=== PATIENT | female | born 1990 | race Caucasian/White ===

== ENCOUNTER → 2018-04-03 14:10 | Outpatient (CLI) | payer OTHER, SELFPAY ==
[2018-04-03 16:13] LABS: Absolute Lymphocyte Count 1.43 X10^3/ul (0.83-4.51); Absolute Neutrophil Count 4.8 X10^3/uL (2.0-7.7); Basophil# 0.06 X10^3/uL; Basophil% 0.8 % (0-1); Eosinophil# 0.29 X10^3/uL; Hematocrit 41.5 % (37-47); Hemoglobin 13.6 g/dl (12.0-15.0); Lymphocyte # 1.43 X10^3/ul (4.0); Lymphocyte % 19.8 % (19-41); Mean Corp Hgb Conc 32.8 g/gl (32-36); Mean Corpuscular Hgb 28.9 pg (27.0-32.0); Mean Corpuscular Volume 88.1 fL (81-99); Mean Platelet Vol. 11.2 fl (6.2-12.0); Monocyte# 0.63 X10^3/uL; Monocyte% 8.7 % (0-10); Neutrophil % 66.6 % (47-70); Platelet Count 265 K/mm3 (150-450); RBC Distribution Width CV 12.3 % (11.6-14.6); RBC Distribution Width SD 39.2 fl (35.1-43.9); Red Blood Count 4.71 M/mm3 (4.2-5.4); White Blood Count 7.2 K/mm3 (4.4-11.0)
[2018-04-03 16:15] LABS: POSITIVE COUNT NO; POSITIVE DIFFERENTIAL NO; POSITIVE MORPHOLOGY NO
[2018-04-03 16:43] LABS: AST(SGOT) 18 U/L (15-37); Alanine Aminotransfer ALT/SGPT 22 U/L (13-56); Albumin, Serum 4.1 g/dL (3.2-5.0); Alkaline Phosphatase 112 U/L (45-117); Anion Gap 7 (5-15); BUN 15 mg/dL (7-18); Bilirubin, Direct 0.15 mg/dL (0.00-0.30); Calcium,Total 9.5 mg/dL (8.5-10.1); Chloride 107 mmol/L (98-107); Creatinine, Serum 0.79 mg/dL (0.55-1.02); EST Glomerular Filtration Rate 93 mL/min (>60); Est Glom Filt Rate - Afr Amer 113 mL/min (>60); Glucose 89 mg/dL (74-106); Potassium 4.3 mmol/L (3.5-5.1); Protein, Total 8.1 g/dL (6.4-8.2); Sodium Level 141 mmol/L (136-145)
--- OUTSIDE RECORDS SUMMARY | 2018-06-06 02:19 | XMS RPT_ITS ---
:1990 Author Organization [place] Care Team Providers Name Role Phone Lashae Mercado Attending Unavailable Lashae Mercado Referring Unavailable Herrera Rose Primary Care Unavailable SRAVANI BOLTON II Attending Unavailable SRAVANI BOLTON II Referring Unavailable Sachin, Charla Attending Unavailable Herrera Rose Primary Care Unavailable Sachin, Charla Admitting Unavailable Sachin, Charla Attending Unavailable Herrera Rose Primary Care Unavailable Sachin, Charla Admitting Unavailable Sachin, Charla Attending Unavailable Herrera Rose Primary Care Unavailable Tom Joyce Attending Unavailable Herrera Rose Primary Care Unavailable Sachin, Charla Admitting Unavailable Sachin, Charla Attending Unavailable Herrera Rose Primary Care Unavailable Sachin, Charla Attending Unavailable Herrera Rose Primary Care Unavailable Sachin, Charla Attending Unavailable Herrera Rose Primary Care Unavailable Sachin, Charla Admitting Unavailable Tom Joyce Attending Unavailable Herrera Rose Primary Care Unavailable Sachin, Charla Attending Unavailable Herrera Rose Primary Care Unavailable Sachin, Charla Attending Unavailable Herrera Rose Primary Care Unavailable Sachin, Charla Admitting Unavailable Sachin, Charla Attending Unavailable Herrera Rose Primary Care Unavailable Sachin, Charla Attending Unavailable Herrera Rose Primary Care Unavailable Herrera Rose Primary Care Unavailable [place], Trisha A Admitting Unavailable Olivia, Trisha A Attending Unavailable Sachin, Charla Attending Unavailable Herrera Rose Primary Care Unavailable Sachin, Charla Attending Unavailable Herrera Rose Primary Care Unavailable Sachin, Charla Admitting Unavailable Sachin, Charla Attending Unavailable Herrera Rose Primary Care Unavailable Sachin, Charla Attending Unavailable Herrera Rose Primary Care Unavailable Sachin, Charla Attending Unavailable Herrera Rose Primary Care Unavailable Sachin, Charla Admitting Unavailable PROBLEMS PROBLEMS DATE TYPE CONDITION / CODE ATTENDING STATUS SOURCE 04/03/2018 Unknown L40.0 - Psoriasis Lashae Mercado Active [facility] vulgaris / Community L40.0(ICD-10) Hospital Repository 02/20/2018 Active Encounter for JESIER II, Active [facility] general adult SRAVANI H [facility] medical Repository examination without abnormal findings / Z00.00(ICD-10) PROCEDURES PROCEDURES No Procedure Records FoundRESULTS RESULTS CBC W/DIFF, AUTOMATED Collected: 04/03/2018 Status: F Source: [place] 2:28 PM [facility] REPOSITORY TYPE CODE TESTS RESULT OUT OF RANGE REFERENCE UNITS LAB L100.1000 4.4-11.0 K/mm3 Normal WBC 7.2 LAB L100.1200 4.2-5.4 M/mm3 Normal RBC 4.71 LAB L100.1300 12.0-15.0 g/dl Normal HGB 13.6 LAB L100.1400 37-47 % Normal HCT 41.5 LAB L100.1500 81-99 fL Normal MCV 88.1 LAB L100.1600 27.0-32.0 pg Normal MCH 28.9 LAB L100.1700 32-36 g/gl Normal MCHC 32.8 LAB L100.1810 11.6-14.6 % Normal RDW CV 12.3 LAB L100.1820 35.1-43.9 fl Normal RDW SD 39.2 LAB L100.1900 150-450 K/mm3 Normal PLT 265 LAB L100.2000 6.2-12.0 fl Normal MPV 11.2 LAB L100.2100 47-70 % Normal NEUT% 66.6 LAB L100.2200 19-41 % Normal LY% 19.8 LAB L100.2300 0-10 % Normal MONO% 8.7 LAB L100.2400 0-5 % Normal EO% 4.0 LAB L100.2500 0-1 % Normal BASO% 0.8 LAB L100.2550 0.0-0.9 % Normal IM GRAN % 0.100 Result Comment: IG% - Immature Granulocytes (promyelocytes, myelocytes and metamyelocytes) > 1% indicates that a LEFT SHIFT is Present. LAB L100.2620 2.0-7.7 X10 3/uL Normal Absolute Neut 4.8 LAB L100.2720 0.83-4.51 X10 3/ul Normal Absolute Lymph 1.43 Performed By: #### L100.0100 #### [facility] [address] [place], [place], [address] BASIC METABOLIC Collected: 04/03/2018 Status: F Source: [place] PROFILE (BMP) 2:28 PM [facility] REPOSITORY TYPE CODE TESTS RESULT OUT OF RANGE REFERENCE UNITS LAB L501.0100 74-106 mg/dL Normal GLU 89 Result Comment: Please note revised GLUCOSE reference range effective 2017. LAB L501.1000 7-18 mg/dL Normal BUN 15 LAB L501.1100 0.55-1.02 mg/dL Normal CREAT,SERUM 0.79 Result Comment: The validity of the calculated GFR AND GFRAA in patients over 70 years has not been determined. Clinical correlation is essential. LAB L501.1110 >60 mL/min Normal EST GFR 93 Result Comment: Non- GFR Calc LAB L501.1115 >60 mL/min Normal EST GFR - AA 113 Result Comment: GFR Calc LAB L501.1300 10-20 RATIO Normal BUN/CRE 19.0 LAB L501.2200 8.5-10.1 mg/dL CA Normal 9.5 LAB L501.5300 136-145 mmol/L NA Normal 141 LAB L501.5600 3.5-5.1 mmol/L K Normal 4.3 LAB L501.5900 98-107 mmol/L CL Normal 107 LAB L501.6100 21.0-32.0 mmol/L Normal CO2 27.0 LAB L501.6200 5-15 Normal GAP 7 Performed By: #### L500.2500, L500.3400 #### [facility] [address] [place], [place], [id number] LIVER PROFILE Collected: 04/03/2018 Status: F Source: [place]IM[place] 2:28 PM [facility] REPOSITORY TYPE CODE TESTS RESULT OUT OF RANGE REFERENCE UNITS LAB L501.1500 6.4-8.2 g/dL Normal T PROT 8.1 LAB L501.1800 3.2-5.0 g/dL Normal ALB 4.1 LAB L501.1950 2.2-4.2 g/dL Normal GLOB 4.0 LAB L501.4100 15-37 U/L Normal AST 18 LAB L501.4305 45-117 U/L Normal ALK P 112 LAB L501.4405 13-56 U/L Normal ALT 22 LAB L501.4600 0.20-1.00 mg/dL Normal T BILI 0.70 LAB L501.4700 0.00-0.30 mg/dL Normal D BILI 0.15 Performed By: #### L500.2500, L500.3400 #### [facility] [address] [place], [place], [address] Observed: 02/23/2018 Status: F Source: QUAKER STREP CONFIRM 12:10 PM [facility] REPOSITORY Final Report: No Beta Hemolytic Streptococci Isolated Performed By: #### [id number] #### SURJIT Microbiology Subsection [address] [place] [address] POC STREP A Collected: 02/23/2018 Status: F Source: QUAKER 12:00 [facility] REPOSITORY TYPE CODE TESTS RESULT OUT OF RANGE REFERENCE UNITS LAB CD:[id number] Negative 283(LOINC) Normal Strep A Negative Screen LAB CD:[id number] Positive 315(LOINC) Normal Strep A Positive Scrn Int Ctl Performed By: #### [id number] #### SURJIT POC Subsection [address] [place] [address] PROGRESS Observed: 02/20/2018 Status: COMPLETED Source: [place] 11:30 AM [facility]P REPOSITORY O ID: [id number] Author: Sravani Bolton II Service: (none) Author Type: DOCKETING SPECIALIST Type: Progress Notes Filed: 02/20/2018 11:34 AM Note Text: Assessment and Plan H10.11 Allergic conjunctivitis of right eye (primary encounter diagnosis) Comment: Recommend use of OTC ketotifen 1 gt right eye twice a day x 1 week. Breast feeding. Recheck as needed. Instruct patient to immediately report any change in condition outside of expected and discussed symptoms. I have confirmed and edited as necessary the relevant ophthalmic history, ROS, and the neuro exam findings as obtained by others. I have seen and examined Helena Quintero. I have discussed the case and the management of this patient's care with the Resident/Fellow, if applicable. I also have reviewed and agree with the assessment and plan as stated above and agree with all of its relevant components. Sravani Bolton, II, OD POC STREP A Collected: 11/03/2017 Status: F Source: QUAKER 11:09 AM [facility] REPOSITORY TYPE CODE TESTS RESULT OUT OF RANGE REFERENCE UNITS LAB CD:[id number] Negative 283(LOINC) Normal Strep A Negative Screen LAB CD:[id number] Positive 315(LOINC) Normal Strep A Positive Scrn Int Ctl Performed By: #### CD:[id number] #### SURJIT POC Subsection [address] [place] [address] Observed: 11/03/2017 Status: F Source: QUAKER STREP CONFIRM 10:05 AM [facility] REPOSITORY Final Report: No Beta Hemolytic Streptococci Isolated Performed By: #### CD:[id number] #### SURJIT Microbiology Subsection [address] [place] [address] IGP W/HPV RFX Collected: 07/25/2017 Status: F Source: QUAKER [id number] 1:40 PM [facility] REPOSITORY Order Comment: LMP: hasn't had one since delivery TYPE CODE TESTS RESULT OUT OF RANGE REFERENCE UNITS LAB [id number](LO INC) Normal See Ref Lab Diagnosis: Report Performed By: #### [id number] #### SURJIT Send Outs Subsection [address] [place] [address] [facility] Observed: 07/25/2017 Status: F Source: [facility] 12:00 AM REPOSITORY FINAL GYNECOLOGIC CYTOLOGY REPORT [id number] SPECIMEN ADEQUACY Satisfactory for Evaluation. Endocervical cells/transformation zone component present. GENERAL CATEGORIZATION Negative for Intraepithelial Lesion or Malignancy COMMENT Atrophic cellular pattern. Patient is post CLINICAL HISTORY Comment: LMP: Hasn't had One since Delivery SPECIMEN (A) SCREENING CERVICAL/ENDOCERVICAL THIN PREP VIAL Performed at [facility], [address] [place] [address] Screened by: Signed Out by: JASON JUARES Sugar Presser Reported: 07/28/2017 Performed By: #### INSURANCE CLAIMS ASSISTANT #### [facility] [address] [place] [address] CTA CHEST Observed: 06/07/2017 Status: F Source: QUAKER 6:20 PM [facility] REPOSITORY Exam Date/Time: 06/07/2017 18:35 EDT Reason for Exam: Chest pain Report EXAM: CTA Chest CLINICAL STATEMENT: Chest pain 2 weeks status post . COMPARISON: None. TECHNIQUE: CT angiography of the pulmonary arteries following the administration of 75 mL Omnipaque 350 intravenous contrast. Coronal and sagittal MIP (maximum intensity projection) images were performed. Dose reduction techniques were achieved by using automated exposure control and/or adjustment of mA and/or kV according to patient size and/or use of iterative reconstruction technique. FINDINGS: There is no evidence of pulmonary arterial embolism. No enlarged lymph nodes are visualized within the chest. The lungs and the pleural spaces are clear. IMPRESSION: Unremarkable CTA of the pulmonary arteries. FINAL REPORT Dictated: 06/07/2017 7:43 pm Boy Chopra MD Signed (Electronic Signature): 06/07/2017 7:43 pm Signed by: Boy Chopra MD Technologist: MLL CBC W/ AUTO DIFF Collected: 06/07/2017 Status: F Source: QUAKER 5:47 PM [facility] REPOSITORY TYPE CODE TESTS RESULT OUT OF RANGE REFERENCE UNITS LAB 14305022(L 3.6-11.0 E3/mcL OINC) Normal WBC 7.1 LAB 88703548(L 3.90-5.40 E6/mcL OINC) Normal RBC 4.76 LAB 46141736(L 12.0-16.0 G/DL OINC) Normal Hgb 15.0 LAB 46666957(L 36.0-48.0 % OINC) Normal Hct 43.1 LAB 60748661(L 11.5-14.5 % OINC) Normal RDW 12.5 LAB 11185145(L 27.0-31.0 pg OINC) High MCH 31.4 LAB 75952195(L 33.0-37.0 G/DL OINC) Normal MCHC 34.7 LAB 59257446(L 78.0-100.0 fL OINC) Normal MCV 90.5 LAB 60695446(L 7.4-11.0 fL OINC) Normal MPV 8.2 LAB 51453990(L 130-400 E3/mcL OINC) Normal Platelet 283 Performed By: #### [id number] #### SURJIT [facility] [facility] [place] [address] AUTO DIFF Collected: 06/07/2017 Status: F Source: QUAKER 5:47 PM [facility] REPOSITORY Order Comment: Order Added by Discern Expert. TYPE CODE TESTS RESULT OUT OF RANGE REFERENCE UNITS LAB 26727710(L 37.0-75.0 % OINC) Normal Neutro Auto 65.9 LAB 60484234(L 20.0-55.0 % OINC) Normal Lymph Auto 24.2 LAB 50292463(L 0.0-10.0 % OINC) Normal [place] Auto 6.3 LAB 86668547(L 0.0-11.0 % OINC) Normal Eos Auto 2.7 LAB 28499988(L 0.0-2.0 % OINC) Normal Basophil Auto 0.9 LAB 89428900(L 1.4-6.5 E3/mcL OINC) Normal Neutro 4.7 Absolute LAB 94920200(L 1.2-3.4 E3/mcL OINC) Normal Lymph Absolute 1.7 LAB 63667168(L 0.0-0.7 E3/mcL OINC) Normal [place] Absolute 0.4 LAB 08069262(L 0.0-0.7 E3/mcL OINC) Normal Eos Absolute 0.2 LAB 19613230(L 0.0-0.2 E3/mcL OINC) Normal Basophil 0.1 Absolute Performed By: #### [id number] #### SURJIT [facility] [place] [address] PT Collected: 06/07/2017 Status: F Source: QUAKER 5:47 PM [facility] REPOSITORY TYPE CODE TESTS RESULT OUT OF RANGE REFERENCE UNITS LAB 11477733(LO 1.0-1.2 INC) Normal INR 1.1 Result Comment: INR Recommended Therapeuptic Ranges: Prophylaxis/treatment of DVT and PE?2.0-3.0 Prevention of systemic embolism?.2.0-3.0 Mechanical prosthetic values?2.5-3.5 CRITICAL VALUES?.>4.0 LAB 09209995(LOINC) 11.6-14.6 second(s) Normal 13.1 PT Performed By: #### [id number] #### SURJIT Hematology Automated Subsection [address] [place] [address] PTT Collected: 06/07/2017 Status: F Source: QUAKER 5:47 PM [facility] REPOSITORY TYPE CODE TESTS RESULT OUT OF RANGE REFERENCE UNITS LAB 87323903(LO 23.2-36.4 second(s) INC) Normal PTT 31.1 Performed By: #### [id number] #### SURJIT Hematology Automated Subsection [address] [place] [address] PTT CONTROL RATIO Collected: 06/07/2017 Status: F Source: QUAKER 5:47 [facility] REPOSITORY Order Comment: Order added by Discern Expert. TYPE CODE TESTS RESULT OUT OF RANGE REFERENCE UNITS LAB 09564881(LO 0.8-1.2 ratio INC) Normal PTT Ratio 1.0 Performed By: #### [id number] #### SURJIT Hematology Automated Subsection [address] [place] [address] BMP Collected: 06/07/2017 Status: F Source: QUAKER 5:47 [facility] REPOSITORY TYPE CODE TESTS RESULT OUT OF RANGE REFERENCE UNITS LAB 14254783(L 70-99 mg/dL OINC) High Glucose Lvl 106 LAB 49492205(L 8.4-10.2 mg/dL OINC) Calcium Normal Lvl 9.8 LAB 07946653(L 136-145 mEq/L OINC) Sodium Normal Lvl 140 LAB 77099278(L 3.5-5.1 mEq/L OINC) Normal Potassium Lvl 3.9 LAB 47593156(L 98-107 mEq/L OINC) High Chloride 108 LAB 30158067(L 24.0-30.0 mEq/L OINC) Low CO2 23.5 LAB 87316671(L 7-18 mg/dL OINC) High BUN 27 LAB 1986282(LO 0.6-1.3 mg/dL INC) Normal Creatinine 0.6 LAB 29189913(L 5.4-30.0 ratio OINC) High BUN/Creat Ratio 45.0 Performed By: #### [id number] #### SURJIT [facility] [address] [place] [id number] CK Collected: 06/07/2017 Status: F Source: QUAKER 5:47 PM [facility] REPOSITORY TYPE CODE TESTS RESULT OUT OF RANGE REFERENCE UNITS LAB 62865756(LO 26-140 Int._Unit/L INC) Normal Total CK 53 Performed By: #### [id number] #### SURJIT [facility] [place] [id number] EGFR Collected: 06/07/2017 Status: F Source: QUAKER 5:47 PM [facility] REPOSITORY Order Comment: Order added by Discern Expert. TYPE CODE TESTS RESULT OUT OF RANGE REFERENCE UNITS LAB 97005366(LO mL/min/1.73 INC) m2 Normal eGFR >60 LAB 43668335(LO mL/min/1.73 INC) m2 Normal eGFR AA >60 Performed By: #### [id number] #### SURJIT [facility] [place] [address] HEP FUNC PANEL Collected: 06/07/2017 Status: F Source: QUAKER 5:47 [facility] REPOSITORY TYPE CODE TESTS RESULT OUT OF RANGE REFERENCE UNITS LAB 19571297(L 10-40 Int._Unit/L OINC) Normal ALT 24 LAB 08904852(L 10-42 Int._Unit/L OINC) Normal AST 25 LAB 94491900(L 3.2-5.0 G/DL OINC) Normal Albumin Lvl 4.0 LAB 13111414(L 2.0-4.0 G/DL OINC) Normal Globulin 3.4 LAB 72088718(L 1.1-1.9 ratio OINC) Normal A/G Ratio 1.2 LAB 72856312(L 42-121 Int._Unit/L OINC) High Alk Phos 125 LAB 47778164(L .00-.20 mg/dL OINC) Normal Bili Direct .18 LAB 78756740(L OINC) Normal Bili Indirect 1.3 Result Comment: No established ranges available for the Indirect Biliruben. LAB 25671361(LOINC) 0.2-1.0 mg/dL High Bili Total 1.5 LAB 36403825(LOINC) 6.4-8.3 G/DL Normal Total Protein 7.4 Performed By: #### [id number] #### SURJIT [facility] [address] [place] [address] LIPASE LEVEL Collected: 06/07/2017 Status: F Source: QUAKER 5:47 PM [facility] REPOSITORY TYPE CODE TESTS RESULT OUT OF RANGE REFERENCE UNITS LAB 31300499(LO 8-57 U/L INC) Normal Lipase Lvl 40 Performed By: #### [id number] #### SURJIT [facility] [place] [address] MAGNESIUM Collected: 06/07/2017 Status: F Source: QUAKER 5:47 PM [facility] REPOSITORY TYPE CODE TESTS RESULT OUT OF RANGE REFERENCE UNITS LAB 98782532(L 1.7-2.8 mg/dL OINC) Normal Magnesium 2.1 Performed By: #### [id number] #### SURJIT [facility] [address] [place] [address] TROPONIN-I Collected: 06/07/2017 Status: F Source: QUAKER 5:47 PM [facility] REPOSITORY TYPE CODE TESTS RESULT OUT OF RANGE REFERENCE UNITS LAB 80986484(LO .00-.03 ng/mL INC) Normal <.01 Troponin-I Performed By: #### [id number] #### SURJIT [facility] [address] [place] [address] HEMOGLOBIN Collected: 05/26/2017 Status: F Source: QUAKER 6:04 AM [facility] REPOSITORY Order Comment: first post- day TYPE CODE TESTS RESULT OUT OF RANGE REFERENCE UNITS LAB 29757312(LO 12.0-16.0 G/DL INC) Low Hgb 11.8 Performed By: #### [id number] #### SURJIT [facility] [address] [place] [address] HEMATOCRIT Collected: 05/26/2017 Status: F Source: QUAKER 6:04 AM [facility] REPOSITORY Order Comment: first post- day TYPE CODE TESTS RESULT OUT OF RANGE REFERENCE UNITS LAB 43529971(LO 36.0-48.0 % INC) Low Hct 35.1 Performed By: #### [id number] #### SURJIT [facility] [address] [place] [address] PLACENTA PATHOLOGY Collected: 05/25/2017 Status: F Source: QUAKER REQUEST - NO EXAM 12:16 AM [facility] REPOSITORY TYPE CODE TESTS RESULT OUT OF REFERENCE UNITS RANGE LAB CD:[id number](LOINC) Normal Placenta Collected Pathology Request - NO EXAM Performed By: #### [id number] #### SURJIT Misc Micro SubSection , CBC W/ AUTO DIFF Collected: 05/23/2017 Status: F Source: QUAKER 6:35 [facility] REPOSITORY TYPE CODE TESTS RESULT OUT OF RANGE REFERENCE UNITS LAB 23390580(L 3.6-11.0 E3/mcL OINC) Normal WBC 9.5 LAB 10338270(L 3.90-5.40 E6/mcL OINC) Normal RBC 4.41 LAB 76795272(L 12.0-16.0 G/DL OINC) Normal Hgb 13.9 LAB 89728759(L 36.0-48.0 % OINC) Normal Hct 40.1 LAB 54481712(L 11.5-14.5 % OINC) Normal RDW 13.0 LAB 59586318(L 27.0-31.0 pg OINC) High MCH 31.4 LAB 11465616(L 33.0-37.0 G/DL OINC) Normal MCHC 34.6 LAB 56873845(L 78.0-100.0 fL OINC) Normal MCV 90.8 LAB 16428709(L 7.4-11.0 fL OINC) Normal MPV 10.3 LAB 16837891(L 130-400 E3/mcL OINC) Normal Platelet 194 Performed By: #### [id number] #### SURJIT [facility] [address] [place] [address] AUTO DIFF Collected: 05/23/2017 Status: F Source: [place] [address]:[address] [place] [address] REPOSITORY Order Comment: Order Added by Discern Expert. TYPE CODE TESTS RESULT OUT OF RANGE REFERENCE UNITS LAB 51685312(L 37.0-75.0 % OINC) High Neutro Auto 77.3 LAB 93059832(L 20.0-55.0 % OINC) Low Lymph Auto 13.8 LAB 57155696(L 0.0-10.0 % OINC) Normal [place] Auto 6.9 LAB 81215965(L 0.0-11.0 % OINC) Normal Eos Auto 1.5 LAB 96626547(L 0.0-2.0 % OINC) Normal Basophil Auto 0.5 LAB 72981938(L 1.4-6.5 E3/mcL OINC) High Neutro 7.3 Absolute LAB 01518961(L 1.2-3.4 E3/mcL OINC) Normal Lymph Absolute 1.3 LAB 08393678(L 0.0-0.7 E3/mcL OINC) Normal [place] Absolute 0.7 LAB 06717942(L 0.0-0.7 E3/mcL OINC) Normal Eos Absolute 0.1 LAB 29597389(L 0.0-0.2 E3/mcL OINC) Normal Basophil 0.1 Absolute Performed By: #### [id number] #### SURJIT [facility] [address] [place] [address] ABO/RH ECHO Collected: 05/23/2017 Status: F Source: QUAKER 6:35 PM [facility] REPOSITORY TYPE CODE TESTS RESULT OUT OF RANGE REFERENCE UNITS LAB 52892333(LO INC) ABO/Rh E O POS Interp... Performed By: #### [id number] #### SURJIT Blood Bank Subsection [address] [place] [address] ANTIBODY SCREEN Collected: 05/23/2017 Status: F Source: QUAKER CAP... 6:35 PM [facility] REPOSITORY TYPE CODE TESTS RESULT OUT OF RANGE REFERENCE UNITS LAB 37059141(L OINC) Normal Screen Negative Interp... Performed By: #### [id number] #### SURJIT Blood Bank Subsection [address] [place] [address] Observed: 04/28/2017 Status: F Source: QUAKER GROUP B STREP PCR 1:55 PM [facility] REPOSITORY Order Comment: For positive results only; Penicillin is the recommended antibiotic for the treatment of Group B Streptococcal disease. In case of penicillin allergy, Clindamycin may be used. All Negative GBS Screens by PCR will be confirmed by culture. Final Report: Streptococcus Group B screen negative Performed By: #### [id number] #### SURJIT Microbiology Subsection [address] [place] [address] ALLERGIES ALLERGIES DATE TYPE / CODE NAME / CODE REACTION SEVERITY SOURCE 05/23/2014 Drug SULFA HIVES [facility] Class/708562 (SULFONAMIDE Main [place] 003(SNOMED ANTIBIOTICS) Repository CT) Drug/6263064 sulfa drugs [id number] Spiritism 03(SNSSM RE[facility]AB [facility] CT) System Repository ENCOUNTERS ENCOUNTERS ADMIT/DISCHARGE ACCOUNT NUMBER ADMITTING ENCOUNTER LOCATION SOURCE CLASS 04/03/2018 [id number] Ambulatory [facility] ding:MTLAB Repository 02/20/2018/02/21/20 [id number] Ambulatory [address] Repository 07/25/2017/07/26/19 [id number] Ambulatory [address] System :[facility] Repository 07/25/2017/07/26/[id number] System :[facility] Repository 07/25/2017/07/26/[id number] System :[facility] Repository om: Room 1 07/25/2017/07/26/19 [id number] Sachin, Charla Ambulatory [address] ding:[facility] System Repository 07/05/2017/07/06/[id number] System :[facility] Repository 07/04/2017/07/05/19 [id number] Sachin, Charla [address] :[facility] Repository om: Room 1 06/07/2017/06/08/19 [id number] [place], [facility] [place] [address] [facility] EDRoom: WR Repository 05/23/2017/05/27/19 [id number] Sachin, Charla Inpatient [place] [address] Encounter [facility] ding:[facility] oom: 404Bed: Repository 05/19/2017/05/20/[id number] :[facility] Repository om: Room 2 05/13/2017/05/14/[id number] System :[facility] Repository om: Room 1 05/11/2017/05/11/19 [id number] Sachin, Charla Ambulatory [address] ding:[facility] OP Repository 05/05/2017/05/05/[id number] System :[facility] Repository 05/05/2017/05/05/19 [id number] Sachin, Charla Ambulatory [address] System :[facility] Repository 05/05/2017/05/05/[id number] System :[facility] Repository 05/05/2017/05/05/[id number] System :[facility] Repository om: CD:[id number] 04/28/2017/04/28/[id number] Sachin, Charla [address] Regional ding:[facility] Repository 04/28/2017/04/28/[id number] System :[facility] Repository om: Room 1 04/12/2017/04/12/19 [id number] Sachin, Charla [address] System :[facility] Repository om: Room 2 PAYERS PAYERS ENCOUNTER GUARANTOR PAYER SUBSCRIBER SOURCE 04/03/2018 HELENA Aguilar Primary ROBERTO CARLOS [id number] Insurance:MEDICAL MITCHELLDOB: [id number] [place]ository [place] [address]Khu: [id number] Date:[id number] ([address]) [address], [place] [address]LK: 04/03/2018 Secondary NOT GIVENUNK [employer] Insurance:SELF PAY [facility] Number: Effective Repository Date:2018-04-03 07/25/2017 HELENA Childress PAGEDOB: Insurance:Medical MITCHELLDOB: [facility] Number: [id number] System [facility] Effective [facility] Repository [place], [place] Date:2017-06-15 - [place], [place] [id number]: [id number]: Name:[employer] (HP) [address] [place] [address] (HP)Tel: (000) [phone]: ([phone] 07/25/2017 HELENA Childress PAGEDOB: Insurance:1500 MITCHELLB: [facility] [id number] System [facility] Number: Effective [facility] Repository [place], [place] Date:2017-07-18 - [place] [address]Das: [id number]: Name:CD:[id number] O (HP) [address] [place] [address] (HP)Tel: (000) [phone]: (WP) [phone] 07/25/2017 HELENA Byrnearitan ANCAB: Insurance:[facility] MITCHELLB: [facility] [id number] System MAIN Number: Effective [facility] Repository [facility], Date:2017-07-18 - [facility] [id number] [id number]: [id number]: Name:CD:[id number] O ) [phone] [place] [address] (HP)Tel: (000) (HP) [phone]: (WP) [phone] 07/25/2017 HELENA Aguilar Primary ROBERTO CARLOS Childress MITCHELLDOB: Insurance:Medical MITCHELLDOB: [facility] E MutualPolicy Number: [id number] System [facility] Effective [facility], Date:2017-07-26 - [facility] [id number] [id number]: [id number]: Name:Medical MutualPO [phone] [place] [address] (HP)Tel: (000) (HP) [phone]: (WP) [phone] 07/05/2017 HELENA Goldman ROBERTO CARLOS Childress PAGEDOB: Insurance:Medical MITCHELLDOB: [facility] MutualPolicy Number: [id number] [facility] Effective [place], [place] Date:2017-05-27 - [place], [place] [id number]: [id number] [id number]: Name:Medical MutualPO (HP) [address] [place] [address] ()Tel: (000) [phone]: (WP) [phone] 07/04/2017 HELENA Juarez Spiritism PAGEDOB: Insurance:1500 MITCHELLDOB: [facility] MEDICAL MUTUALPolicy [id number] [facility] Number: Effective [facility] Repository [place], [place] Date:2017-07-04 - [place] [address]Xaa: [id number] [id number]: Name:[id number] O (HP) [address] [place] [address] (HP)Tel: (000) [phone]: (WP) [phone] 06/07/2017 HELENA DODDMARTY ByrneSpiritism PAGEDOB: Insurance:Medical MITCHELLDOB: [facility] MutualPolicy Number: [id number] [facility] Effective [facility] Repository [place], [place] Date:2017-06-07 - [place], [place] [id number]: [id number] [id number]: Name:Medical MutualPO (HP) [address] [place] [address] (HP)Tel: 000 [phone]: [phone] 05/23/2017 HELENA Aguilar Primary ROBERTO CARLOS QUINTEROB: Insurance:Medical MITCHELLDOB: [facility] MutualPolicy Number: [id number] [facility] Effective [facility] Repository [place], [place] Date:2017-05-23 - [place] [id number]: [id number] [id number]: Name:Medical MutualPO (HP) [address] [place] [address] (HP)Tel: (000 [phone]: (WP) [phone] 05/19/2017 HELENA Goldman ROBERTO CARLOS QUINTERODOB: Insurance:1500 MITCHELLDOB: [facility] MEDICAL [place]ED[place]Policy [id number] System [place] Number: Effective [facility] Repository [place], [place] Date:2017-05-13 - [place] [id number]: [id number] [id number]: Name:CD:[id number] O (HP) [address] [place] [address] (HP)Tel: 000) [phone]: (WP) [phone] 05/13/2017 HELENA Christine Primary ROBERTO CARLOS MARCHB: Insurance:1500 MITCHELLDOB: [facility] MEDICAL BLED[place]Policy [id number] System [place] Number: Effective [facility] Repository [place], [place] Date:2017-05-05 - [place], [place] [id number]: [id number] [id number]: Name:[id number] O (HP) [address] [place] [address] (HP)Tel: (000 [phone]: (WP) [phone] 05/11/2017 HELENA Christine Primary ROBERTO CARLOS MARCHB: Insurance:Medical MITCHELLDOB: [facility] MutualPolicy Number: [id number] System [place] Effective [facility] Rep[facility] [place], [place] Date:2017-04-13 - [place] [id number]: [id number] [id number]: Name:Medical MutualPO (HP) [address] [place] [address] (HP)Tel: (000) [phone]: (WP) [phone] 05/05/2017 HELENA Christine Primary ROBERTO CARLOS MARCHB: Insurance:1500 MITCHELLDOB: [facility] MEDICAL BLED[place]Policy [id number] System [place] Number: Effective [facility] Repository [place], [place] Date:2017-04-28 - [place] [id number]: [id number] [id number]: Name:[id number] O (HP) [address] [place] [address] (HP)Tel: (000) [phone]: (WP) [phone] 05/05/2017 HELENA Christine Primary ROBERTO CARLOS MARCHB: Insurance:1500 MITCHELLDOB: [facility] MEDICAL [place]Policy [id number] System [place] Number: Effective [facility] Repository [place], [place] Date:2017-04-28 - [place] [id number]: [id number] [id number]: Name:[id number] O (HP) [address] [place] [address] (HP)Tel: (000) [phone]: (WP) 05/05/2017 HELENA Christine Primary ROBERTO CARLOS MARCHB: Insurance:1500 MITCHELLB: [facility] MEDICAL [place]Policy [id number] System [place] Number: Effective [facility] Rep[facility] [place], [place] Date:2017-04-28 - [place], [place] [id number]: [id number] [id number]: Name:[id number] O (HP) [address] [place] [address] (HP)Tel: (000) [phone]: (WP) [phone] 05/05/2017 HELENA Christine Primary ROBERTO CARLOS MARCHB: Insurance:1500 MITCHELLB: [facility] MEDICAL [place]Policy [id number] System [place] Number: Effective [facility] Rep[facility] [place], [place] Date:2017-05-05 - [place] [id number]: [id number] [id number]: Name:[id number] O (HP) [address] [place] [address] (HP)Tel: (000) [phone]: [phone] 04/28/2017 HELENA Christine Primary ROBERTO CARLOS MARCHB: Insurance:Medical MITCHELLB: [facility] MutualPolicy Number: [id number] System [place] Effective [facility] Rep[facility] [place], [place] Date:2017-04-28 - [place], [place] [id number]: [id number] [id number]: Name:Medical Mutual (HP) [address] [place] [address] (HP)Tel: (000) [phone]: (WP) [phone] 04/28/2017 HELENA Christine Primary ROBERTO CARLOS MARCHB: Insurance:1500 MITCHELLDOB: [facility] [id number] System [place] Number: Effective [facility] [place] Date:2017-04[place]12 - [address] [id number]: [id number] [id number]: Name:CD:[id number] O (HP) [address] [place] [address] (HP)Tel: 000) [phone]: (WP) [phone] 04/12/2017 HELENA Christine Primary ROBERTO CARLOS MARCHB: Insurance:1500 MITCHELLB: [facility] [id number] System [place] Number: Effective [facility] Repository [place], [place] Date:2017-03-28 - [address] [id number]: [id number] [id number]: Name:CD:[id number] O (HP) [address] [place] [address] (HP)Tel: 000) [phone]: (WP) [phone]
== END ==
PROVIDERS: Referring Provider Dermatology Pediatric Dermatology; Visit Provider Dermatology Pediatric Dermatology
DX: L40.0 Psoriasis vulgaris (principal); Z79.899 Other long term (current) drug therapy
CPT/HCPCS: 36415; 80048; 80076; 85025

== ENCOUNTER → 2018-08-31 | Outpatient (CLI) | payer OTHER, SELFPAY ==
[2018-09-02 20:06] LABS: QNTFERON TB Mitogen Value > 10.00 IU/mL (.); QNTFERON TB Nil Value 0.02 IU/mL (.); QNTFERON TB1+ Ag Value 0.02 IU/mL (.); QNTFERON TB2+ Ag Value 0.01 IU/mL (.)
[2018-09-04 11:25] LABS: QNTIFERON TB Positive Criteria Negative (Negative)
== END | disposition home or self-care (01) ==
PROVIDERS: Referring Provider Physician Assistant Medical; Visit Provider Physician Assistant Medical
DX: L40.0 Psoriasis vulgaris (principal); D22.5 Melanocytic nevi of trunk
CPT/HCPCS: 36415; 86480